=== PATIENT | female | born 1985 | race Caucasian/White ===

== ENCOUNTER 2016-07-27 11:51 | Emergency (ER) | payer MEDICAID | END 2016-07-27 12:34 | disposition home or self-care (01) | LOC: D.ER 11:51 | DX: H66.92 Otitis media, unspecified, left ear (principal) ==

== ENCOUNTER 2016-10-10 20:29 | Emergency (ER) | payer MEDICAID | END 2016-10-11 00:18 | disposition home or self-care (01) | LOC: D.ER 20:29 | DX: L03.113 Cellulitis of right upper limb (principal) ==

== ENCOUNTER 2017-06-08 20:52 | Emergency (ER) | payer MEDICAID ==
[2017-06-08 21:28] LABS: BASOPHILS 0.1 % (0-2); EOSINOPHILS 3.7 % (0-7); HEMATOCRIT 40.5 % (36.0-48.0); HEMOGLOBIN 13.2 g/dL (12-16); IMMATURE GRANULOCYTES 0.1 % (0-5); LYMPHOCYTES 40.2 % (15-50); MCH 28.4 pg (26.0-34.0); MCHC 32.6 g/dL (31.0-37.0); MCV 87.3 fL (80.0-100.0); MEAN PLATELET VOLUME 9.5 fL (7.4-10.4); NEUTROPHILS 47.9 % (40-80); RBC 4.64 10x6/uL (4.00-5.40); RDW 13.4 % (11.5-14.5); WBC 8.6 10x3/uL (4.8-10.8)
[2017-06-08 21:29] LABS: APPEARANCE HAZY (CLEAR); BILIRUBIN NEGATIVE (NEGATIVE); COLOR YELLOW (YELLOW); GLUCOSE NEGATIVE (NEGATIVE); KETONE NEGATIVE (NEGATIVE); NITRITE NEGATIVE (NEGATIVE); PROTEIN NEGATIVE (NEGATIVE)
[2017-06-08 21:29] LABS: PLATELET COUNT 343 10x3/uL (130-400)
[2017-06-08 21:41] LABS: ALBUMIN 3.3 g/dL (3.4-5.0); ANION GAP 11.7 mmol/L (8-16); BILIRUBIN - TOTAL 0.38 mg/dL (0.2-1.3); CALCIUM 8.8 mg/dL (8.5-10.1); CARBON DIOXIDE 29.9 mmol/L (21.0-32.0); POTASSIUM - SERUM 3.6 mmol/L (3.5-5.1); PROTEIN - SERUM 7.9 g/dL (6.4-8.2)
[2017-06-08 21:46] LABS: HCG SERUM NEGATIVE (NEGATIVE)
== END 2017-06-08 22:36 | disposition home or self-care (01) ==
LOC: D.ER 20:52
PROVIDERS: Family Medicine
DX: K59.00 Constipation, unspecified (principal)

== ENCOUNTER 2017-07-03 17:04 | Emergency (ER) | payer MEDICAID | END 2017-07-03 18:46 | disposition home or self-care (01) | LOC: D.ER 17:04 | DX: H66.92 Otitis media, unspecified, left ear (principal) ==

== ENCOUNTER 2017-11-12 09:52 | Emergency (ER) | payer MEDICAID | END 2017-11-12 10:55 | disposition home or self-care (01) | LOC: D.ER 09:52 | DX: S80.02XA Contusion of left knee, initial encounter (principal); Y93.42 Activity, yoga; Y92.89 Other specified places as the place of occurrence of the external cause ==

== ENCOUNTER 2017-11-26 23:34 | Emergency (ER) | payer MEDICAID ==
[~2017-11-26] VITALS: Ht 165.1 cm; Wt 84.1 kg
[2017-11-26 23:50] VITALS: Ht 165.1 cm; Wt 84.1 kg
[2017-11-27 00:46] LABS: APPEARANCE CLEAR (CLEAR); BILIRUBIN NEGATIVE (NEGATIVE); COLOR YELLOW (YELLOW); GLUCOSE NEGATIVE (NEGATIVE); KETONE NEGATIVE (NEGATIVE); NITRITE NEGATIVE (NEGATIVE); PROTEIN NEGATIVE (NEGATIVE); UROBILINOGEN NORMAL (NORMAL)
[2017-11-27 00:52] LABS: HCG URINE NEGATIVE (NEGATIVE)
[2017-11-27 00:55] LABS: UDS - AMPHET NEGATIVE QUAL (NEGATIVE); UDS - BARB NEGATIVE QUAL (NEGATIVE); UDS - BENZO NEGATIVE QUAL (NEGATIVE); UDS - COCAINE NEGATIVE QUAL (NEGATIVE); UDS - OPIATE NEGATIVE QUAL (NEGATIVE); UDS - PCP NEGATIVE QUAL (NEGATIVE); UDS - THC NEGATIVE QUAL (NEGATIVE)
[2017-11-27] MEDS ORDERED: ALLEGRA-D1 TAB.SR1 PO (01:20)
[2017-11-27] MEDS ORDERED: OMNICEF300 MG PO (01:20)
[2017-11-27 01:50] VITALS: BP 109/71
== END 2017-11-27 01:51 | disposition home or self-care (01) ==
LOC: D.ER 23:34
PROVIDERS: Family Medicine
DX: H66.91 Otitis media, unspecified, right ear (principal); R42 Dizziness and giddiness; R11.0 Nausea

== ENCOUNTER 2018-01-30 19:40 | Emergency (ER) | payer MEDICAID ==
[~2018-01-30 19:40] MED LIST: ALLEGRA-D1 TAB.SR1 PO; OMNICEF300 MG PO
[2018-01-30 19:49] VITALS: Ht 165.1 cm
[2018-01-30 20:09] LABS: BASOPHILS 0.3 % (0-2); EOSINOPHILS 5.1 % (0-7); HEMATOCRIT 36.9 % (36.0-48.0); HEMOGLOBIN 12.1 g/dL (12-16); IMMATURE GRANULOCYTES 0.2 % (0-5); LYMPHOCYTES 38.2 % (15-50); MCH 28.1 pg (26.0-34.0); MCHC 32.8 g/dL (31.0-37.0); MCV 85.8 fL (80.0-100.0); MEAN PLATELET VOLUME 9.8 fL (7.4-10.4); MONOCYTES 8.2 % (2-11); PLATELET COUNT 322 10x3/uL (130-400); RDW 13.8 % (11.5-14.5); WBC 9.7 10x3/uL (4.8-10.8)
[2018-01-30 20:34] LABS: ALBUMIN 2.9 g/dL (3.4-5.0); ALKALINE PHOSPHATASE 86 U/L (46-116); ALT (SGPT) 25 U/L (10-68); BILIRUBIN - TOTAL 0.34 mg/dL (0.2-1.3); CALC OSMOLALITY 263 mosm/kg (275-300); CALCIUM 8.8 mg/dL (8.5-10.1); CARBON DIOXIDE 29.7 mmol/L (21.0-32.0); CHLORIDE - SERUM 104 mmol/L (98-107); GLUCOSE 93 mg/dL (74-106); PROTEIN - SERUM 7.5 g/dL (6.4-8.2); SODIUM 132 mmol/L (136-145); UREA NITROGEN 11 mg/dL (7-18); eGFR NON AFRICAN AMERICAN 69 mL/min (90-120)
[2018-01-30 20:40] LABS: HCG SERUM NEGATIVE (NEGATIVE)
[2018-01-30 20:56] LABS: CKMB 0.4 U/L (0.0-3.6); CREATINE KINASE 50 UL (21-215)
[2018-01-30 20:58] LABS: TROPONIN-I < 0.017 ng/mL (0.000-0.060)
[2018-01-30 21:22] LABS: APPEARANCE CLEAR (CLEAR); BILIRUBIN NEGATIVE (NEGATIVE); COLOR YELLOW (YELLOW); GLUCOSE NEGATIVE (NEGATIVE); KETONE NEGATIVE (NEGATIVE); NITRITE NEGATIVE (NEGATIVE); PROTEIN NEGATIVE (NEGATIVE); UROBILINOGEN NORMAL (NORMAL)
[2018-01-30 21:37] LABS: UDS - AMPHET NEGATIVE QUAL (NEGATIVE); UDS - BARB NEGATIVE QUAL (NEGATIVE); UDS - BENZO NEGATIVE QUAL (NEGATIVE); UDS - COCAINE NEGATIVE QUAL (NEGATIVE); UDS - OPIATE NEGATIVE QUAL (NEGATIVE); UDS - PCP NEGATIVE QUAL (NEGATIVE); UDS - THC NEGATIVE QUAL (NEGATIVE)
[2018-01-30] MEDS ORDERED: MECLIZINE HCL25 MG PO (22:14)
[2018-01-31 00:57] VITALS: BP 110/80
== END 2018-01-30 22:38 | disposition home or self-care (01) ==
LOC: D.ER 19:40
PROVIDERS: Emergency Medicine
DX: R42 Dizziness and giddiness (principal); R11.0 Nausea; R51 Headache

== ENCOUNTER 2018-02-22 21:36 | Emergency (ER) | payer MEDICAID ==
[~2018-02-22] VITALS: Ht 165.1 cm; Wt 81.8 kg
[~2018-02-22 21:36] MED LIST changes: +MECLIZINE HCL25 MG PO
[2018-02-22 22:03] VITALS: Ht 165.1 cm; Wt 81.8 kg
[2018-02-22] MEDS ORDERED: ALAVERT10 MG/TAB PO (23:03)
[2018-02-22] MEDS ORDERED: OMNICEF300 MG PO (23:03)
[2018-02-22 23:45] VITALS: BP 117/68
== END 2018-02-22 23:45 | disposition home or self-care (01) ==
LOC: D.ER 21:36
DX: H66.92 Otitis media, unspecified, left ear (principal)

== ENCOUNTER 2018-04-13 20:24 | Emergency (ER) | payer MEDICAID ==
[~2018-04-13] VITALS: Ht 165.1 cm; Wt 86.4 kg
[~2018-04-13 20:24] MED LIST changes: +ALAVERT10 MG/TAB PO
[2018-04-13 20:31] VITALS: Ht 165.1 cm; Wt 86.4 kg
[2018-04-13] MEDS ORDERED: IBUPROFEN800 MG PO (20:34)
[2018-04-13 21:13] LABS: BASOPHILS 0.1 % (0-2); EOSINOPHILS 2.3 % (0-7); HEMATOCRIT 43.1 % (36.0-48.0); HEMOGLOBIN 14.2 g/dL (12-16); IMMATURE GRANULOCYTES 0.1 % (0-5); LYMPHOCYTES 36.2 % (15-50); MCH 28.2 pg (26.0-34.0); MCHC 32.9 g/dL (31.0-37.0); MCV 85.7 fL (80.0-100.0); MEAN PLATELET VOLUME 9.7 fL (7.4-10.4); NEUTROPHILS 52.3 % (40-80); PLATELET COUNT 348 10x3/uL (130-400); RBC 5.03 10x6/uL (4.00-5.40); RDW 13.1 % (11.5-14.5); WBC 7.8 10x3/uL (4.8-10.8)
[2018-04-13 21:31] LABS: ALBUMIN 3.6 g/dL (3.4-5.0); ANION GAP 13.9 mmol/L (8-16); BILIRUBIN - TOTAL 0.89 mg/dL (0.2-1.3); CALCIUM 9.1 mg/dL (8.5-10.1); CARBON DIOXIDE 27.8 mmol/L (21.0-32.0); POTASSIUM - SERUM 3.7 mmol/L (3.5-5.1); PROTEIN - SERUM 8.7 g/dL (6.4-8.2)
[2018-04-13] MEDS ORDERED: NEURONTIN 300300 MG PO (21:55)
[2018-04-13] MEDS ORDERED: ULTRAM50 MG PO (21:55)
[2018-04-13 22:21] VITALS: BP 119/67
== END 2018-04-13 22:22 | disposition home or self-care (01) ==
LOC: D.ER 20:24
PROVIDERS: Emergency Medicine
DX: R42 Dizziness and giddiness (principal); M54.2 Cervicalgia; K21.9 Gastro-esophageal reflux disease without esophagitis

== ENCOUNTER 2019-12-06 13:17 | Emergency (ER) | payer MEDICAID ==
[~2019-12-06] VITALS: Ht 165.1 cm; Wt 86.4 kg
[~2019-12-06 13:17] MED LIST changes: +IBUPROFEN800 MG PO; +NEURONTIN 300300 MG PO; +ULTRAM50 MG PO
[2019-12-06 13:33] VITALS: Ht 165.1 cm; Wt 86.4 kg
[2019-12-06 15:09] VITALS: BP 124/85
== END 2019-12-06 15:10 | disposition home or self-care (01) ==
LOC: D.ER 13:17
DX: S00.83XA Contusion of other part of head, initial encounter (principal); V89.2XXA Person injured in unspecified motor-vehicle accident, traffic, initial encounter; Y93.9 Activity, unspecified; Y92.9 Unspecified place or not applicable; E11.9 Type 2 diabetes mellitus without complications; R51 Headache; K21.9 Gastro-esophageal reflux disease without esophagitis

== ENCOUNTER 2020-04-07 21:33 | Emergency (ER) | payer MEDICAID ==
[~2020-04-07] VITALS: Ht 165.1 cm; Wt 90.9 kg
[2020-04-07 21:41] VITALS: Ht 165.1 cm; Wt 90.9 kg
[2020-04-07 22:25] LABS: BASOPHILS 0.2 % (0-2); EOSINOPHILS 3.5 % (0-7); HEMATOCRIT 40.3 % (36.0-48.0); IMMATURE GRANULOCYTES 0.1 % (0-5); LYMPHOCYTES 34.3 % (15-50); MCH 27.7 pg (26.0-34.0); MCHC 32.3 g/dL (31.0-37.0); MCV 85.9 fL (80.0-100.0); MEAN PLATELET VOLUME 9.8 fL (7.4-10.4); MONOCYTES 7.3 % (2-11); NEUTROPHILS 54.6 % (40-80); PLATELET COUNT 363 10x3/uL (130-400); RBC 4.69 10x6/uL (4.00-5.40); WBC 8.2 10x3/uL (4.8-10.8)
[2020-04-07 22:33] LABS: BILIRUBIN NEGATIVE (NEGATIVE); KETONE NEGATIVE (NEGATIVE); NITRITE NEGATIVE (NEGATIVE); UROBILINOGEN NORMAL mg/dL (< 2)
[2020-04-07 22:34] LABS: ANION GAP 10.4 mmol/L (8-16); CALCIUM 8.9 mg/dL (8.5-10.1); CARBON DIOXIDE 29.1 mmol/L (21.0-32.0); POTASSIUM - SERUM 3.5 mmol/L (3.5-5.1)
[2020-04-07 22:51] LABS: ALBUMIN 3.5 g/dL (3.4-5.0); BILIRUBIN - TOTAL 0.4 mg/dL (0.2-1.3); PROTEIN - SERUM 8.2 g/dL (6.4-8.2)
[2020-04-07] MEDS ORDERED: PHENERGAN25 M1 PO (22:56)
[2020-04-07 23:14] LABS: HCG URINE NEGATIVE (NEGATIVE)
[2020-04-08 00:14] VITALS: BP 102/61
== END 2020-04-08 00:14 | disposition home or self-care (01) ==
LOC: D.ER 21:33
PROVIDERS: Family Medicine
DX: K29.70 Gastritis, unspecified, without bleeding (principal); R10.9 Unspecified abdominal pain; K21.9 Gastro-esophageal reflux disease without esophagitis; M54.9 Dorsalgia, unspecified; R11.0 Nausea

== ENCOUNTER 2020-08-14 14:06 | Emergency (ER) | payer MEDICAID ==
[~2020-08-14] VITALS: Ht 165.1 cm; Wt 81.8 kg
[~2020-08-14 14:06] MED LIST changes: +PHENERGAN25 M1 PO
[2020-08-14 14:27] VITALS: Ht 165.1 cm; Wt 81.8 kg
[2020-08-14] MEDS ORDERED: VOLTAREN75 MG PO (16:54)
[2020-08-14 17:09] VITALS: BP 108/67
== END 2020-08-14 17:11 | disposition home or self-care (01) ==
LOC: D.ER 14:06
DX: M79.605 Pain in left leg (principal); G89.29 Other chronic pain; K21.9 Gastro-esophageal reflux disease without esophagitis